=== PATIENT | male | born 1985 | race Caucasian/White ===

== ENCOUNTER 2016-05-17 17:53 | Emergency (ER) | payer MEDICARE, OTHER ==
--- NOTE | ~2016-05-17 | CR126 ---
[facility]. [facility] A Service of [facility] & [facility] RADIOLOGY TEXT RESULTS PATIENT: SANJEEV OCONNELL LOCATION: SED : 89 UNIT #: [id number] AGE: [address]: Gurpreet Gorman MD SEX: M ORDER DR: [id number] [place] [id number] E MR#: [id number] Acc #: [id number] NAME: SANJEEV OCONNELL : 1985 SEX: M STUDY DATE/TIME: 05/17/2016 18:00 UNIT: SED ROOM: STUDY DESCRIPTION: CR Foot Complete Min 3 View Lt Attending Physician: Gurpreet Gorman M.D. Ordering Physician: Gurpreet Gorman M.D. Primary Care Physician: Jaiden Natarajan MEDICAL IMAGING REPORT This report is preliminary unless electronic signature is present. EXAM Left foot 3 views HISTORY 30-year-old male fell down steps at home 3 days ago foot pain, bruising, swelling first second and third digit. FINDINGS 3 views of the left foot demonstrates no fracture or dislocation. No arthritic or inflammatory change. Soft tissues unremarkable. Patient does demonstrate pes planus. IMPRESSION No acute fracture deformity. Dictated by... Lety Lucero M.D. THIS IS AN ELECTRONICALLY VERIFIED REPORT Lety Lucero M.D. at 05/18/2016 7:29 AM Brittaney TD: 05/18/2016 06:46 JOB #: [id number] MEDICAL IMAGING REPORT Page 1 of 1
[~2016-05-17 17:53] MED LIST: ABILIFY PO; AMOXICILLIN500 M1 PO; BACITRACIN30 GM TOP; BETAMETHASONE 0.1%; KEFLEX PO
== END 2016-05-17 18:29 | disposition home or self-care (01) ==
LOC: SED 17:53
DX: S93.522A Sprain of metatarsophalangeal joint of left great toe, initial encounter (principal); S93.52 Sprain of metatarsophalangeal joint of toe; S93.622A Sprain of tarsometatarsal ligament of left foot, initial encounter; Z79.899 Other long term (current) drug therapy; Z87.891 Personal history of nicotine dependence; W18.39XA Other fall on same level, initial encounter; Y92.098 Other place in other non-institutional residence as the place of occurrence of the external cause
CPT/HCPCS: 29405; 73630; 99283